=== PATIENT | male | born 1970 | race Caucasian/White ===

== ENCOUNTER 2016-12-22 08:02 | Emergency (ER) | payer SELFPAY ==
[~2016-12-22] VITALS: Ht 175.3 cm; Wt 77.2 kg
[2016-12-22] MEDS ORDERED: SODIUM CHLORIDE 0.9% 1,000ML IVBOLUS ONE (09:00)
[2016-12-22 09:40] LABS: HEMOGLOBIN 12.8 g/dL (13.7-18.0); WHITE BLOOD COUNT 7.1 x10^3/uL (3.4-10)
[2016-12-22 09:43] LABS: BLOOD UREA NITROGEN 12 mg/dL (7-18)
[2016-12-22] MEDS ORDERED: INSU100V8 SQ (09:44)
[2016-12-22] MEDS ORDERED: INSU100I11 SQ-INSULIN (09:44)
[2016-12-22] MEDS ORDERED: METF500T4 PO (09:44)
[2016-12-22 09:46] LABS: ASPARTATE AMINO TRANSFERASE 110 U/L (15-37)
[2016-12-22] MEDS ORDERED: INSULIN REGULAR 100 UNITS/ML, 3ML VIAL ONE (09:56)
[2016-12-22] MEDS ORDERED: INSULIN REGULAR 100 UNITS/ML, 3ML VIAL SQ-INSULIN ONE (10:00)
[2016-12-22 10:08] LABS: IS PT STATUS REG ER OR PRE ER? YES
[2016-12-22] MEDS ORDERED: BACITRACIN ZINC OINT 500U/GM, 0.9 GM ONE (10:49)
[2016-12-22 11:03] VITALS: BP 128/84
== END 2016-12-22 11:07 | disposition home or self-care (01) ==
LOC: ED 09:33
DX: E11.65 Type 2 diabetes mellitus with hyperglycemia (principal); F15.10 Other stimulant abuse, uncomplicated; F17.210 Nicotine dependence, cigarettes, uncomplicated; F41.9 Anxiety disorder, unspecified
CPT/HCPCS: 36415; 80053; 81003; 84484; 85025; 93005; 96360; 96372; 99285; J7030; 82962